=== PATIENT | male | born 1955 | race African-American/Black ===

== ENCOUNTER 2016-12-31 10:14 | Inpatient (IN) ==
[2016-12-31] MEDS ORDERED: methylPREDNISolone SOD SUC 125 MG/2 ML VIAL IV STA (10:23)
[2016-12-31] MEDS ORDERED: VECURONIUM 10 MG VIAL IV STA (10:30)
[2016-12-31] MEDS ORDERED: ALBUTEROL 2.5 MG/3 ML NEB RESP TX SCH (10:30)
[2016-12-31] MEDS ORDERED: PROPOFOL 1,000 MG/100 ML BOTTLE IV ONE (10:31)
[2016-12-31] MEDS: PROPOFOL 1,000 MG/100 ML BOTTLE IV SCH ×3 (10:34→21:01)
[2016-12-31] MEDS ORDERED: ETOMIDATE 20 MG/10 ML VIAL IV ONE ×2 (10:36→10:46)
[2016-12-31] MEDS ORDERED: VECURONIUM 10 MG VIAL IV ONE (10:46)
[2016-12-31 10:54] LABS: ABG Base Excess -3.9 MMOL/L (-2.5-2.5); ABG HCO3 21.2 MMOL/L (20-26); ABG TCO2 23.7 MMOL/L (23-27)
[2016-12-31 11:07] LABS: Basophils % 0.4 % (0.0-0.8); Eosinophils # 0.3 10*3/uL (0.0-0.87); Eosinophils % 2.8 % (0.00-10.9); Hematocrit 24.8 VOL% (42.0-52.0); Hemoglobin 7.5 GM/DL (14.0-18.0); Immature Granulocytes % 0.4 %; Immature Granulocytes Absolute 0.04 #; Lymphocytes # 1.6 10*3/uL (1.4-4.0); Lymphocytes % 15.1 % (21.2-54.2); Mean Corpuscular HGB Conc 30.2 GM/DL (32-36); Mean Corpuscular Hemoglobin 24 PG (27-34); Mean Corpuscular Volume 79.2 FL (87-102); Mean Platelet Volume 12.3 FL (9.6-12.0); Monocytes # 0.4 10*3/uL (0.11-0.8); Monocytes % 3.9 % (1.7-12.7); Neutrophils % 77.4 % (38.7-73.9); Platelet Count 192 T/CUMM (130-400); Red Blood Count 3.13 MC/CUMM (3.8-5.5); Red Cell Distribution Width 17.5 % (9.3-17.3); White Blood Count 10.3 T/CUMM (4-12)
[2016-12-31 11:16] LABS: INR 1.2; Partial Thromboplastin Time 26.4 SECS (0-40)
[2016-12-31] MEDS ORDERED: methylPREDNISolone SOD SUC 125 MG/2 ML VIAL ONE (11:36)
[2016-12-31 11:42] LABS: Alanine Aminotransferase 129 U/L (16-61); Albumin 3.2 G/DL (3.4-5.0); Alkaline Phosphatase 109 U/L (45-117); Aspartate Amino Transferase 160 U/L (0-37); Bilirubin,Total < 0.39 MG/DL (0.2-1.0); Blood Urea Nitrogen 52 MG/DL (7-18); Calcium 8.5 MG/DL (8.5-10.1); Glucose 211 MG/DL (74-106); Potassium 4.3 MMOL/L (3.5-5.1); Sodium 143 MMOL/L (136-145); Total Protein 6.2 G/DL (6.4-8.3)
[2016-12-31 11:43] LABS: Troponin I Only 0.234 NG/ML (0.00-0.045)
[2016-12-31 11:50] LABS: Apearance,Urine CLEAR (Clear); Bilirubin,Urine Negative (Negative); Blood, Urine Small mg/dL (Negative); Glucose,Urine (UA) 50 mg/dL (Negative); Ketones,Urine Negative (Negative); Mucus,Urine Occasional /LPF (Occasional); Nitrite,Urine Negative (Negative); Protein,Urine >=500 MG/DL; RBC,Urine <1 /HPF (0-4); Urine Color Straw (Yellow); Urine Specific Gravity 1.007 (1.001-1.035); Urine Urobilinogen < 2.0 EU/DL (0.2-1.0); WBC,Urine 2 /HPF (0-6)
[2016-12-31] MEDS ORDERED: ALBUTEROL 2.5 MG/3 ML NEB RESP TX PRN (12:52)
[2016-12-31] MEDS ORDERED: SODIUM CHLORIDE 0.9% 250 ML IV PRN (13:00)
[2016-12-31] MEDS ORDERED: GLUCAGON 1 MG VIAL IM PRN (14:20)
[2016-12-31] MEDS ORDERED: DEXTROSE 50% 25 GM/50 ML VIAL IV PRN (14:20)
[2016-12-31 15:36] LABS: ABG Base Excess 0.4 MMOL/L (-2.5-2.5); ABG HCO3 25.1 MMOL/L (20-26); ABG Oxygen Saturation 98.8 % (95-100); ABG PCO2 40.4 MM HG (35-48); ABG PH 7.411 (7.35-7.45); ABG PO2 155.3 MM HG (80-95); ABG TCO2 26.3 MMOL/L (23-27); Allen Test Positive; Pt O2 Delivery Device Ventilator
[2016-12-31] MEDS: FUROSEMIDE 40 MG/4 ML VIAL IV SCH (17:07)
[2016-12-31] MEDS: INSULIN REGULAR 100 UNIT/ML SUBCUT SCH ×2 (17:07→20:07)
[2016-12-31 17:10] LABS: CKMB % 1.9 %
[2016-12-31 17:11] LABS: Troponin I Only 0.252 NG/ML (0.00-0.045)
[2016-12-31] MEDS: PANTOPRAZOLE 40 MG VIAL IV SCH (20:07)
[2016-12-31 23:13] LABS: Troponin I Only 0.204 NG/ML (0.00-0.045)
[2017-01-01] MEDS: PROPOFOL 1,000 MG/100 ML BOTTLE IV SCH ×7 (00:31→21:19)
[2017-01-01 03:12] LABS: ABG Base Excess -3.4 MMOL/L (-2.5-2.5); ABG HCO3 21.5 MMOL/L (20-26); ABG Oxygen Saturation 99.9 % (95-100); ABG PCO2 32.6 MM HG (35-48); ABG PH 7.408 (7.35-7.45); ABG TCO2 19.2 MMOL/L (23-27)
[2017-01-01 03:22] LABS: Basophils % 0.2 % (0.0-0.8); Hematocrit 25.7 VOL% (42.0-52.0); Hemoglobin 8.2 GM/DL (14.0-18.0); Immature Granulocytes % 0.5 %; Immature Granulocytes Absolute 0.03 #; Lymphocytes # 0.5 10*3/uL (1.4-4.0); Lymphocytes % 8.3 % (21.2-54.2); Mean Corpuscular HGB Conc 31.9 GM/DL (32-36); Mean Corpuscular Hemoglobin 25 PG (27-34); Mean Corpuscular Volume 77.2 FL (87-102); Mean Platelet Volume 12.5 FL (9.6-12.0); Monocytes # 0.1 10*3/uL (0.11-0.8); Monocytes % 1.4 % (1.7-12.7); Neutrophils # 5.2 10*3/uL (1.4-7.4); Neutrophils % 89.6 % (38.7-73.9); Platelet Count 161 T/CUMM (130-400); Red Blood Count 3.33 MC/CUMM (3.8-5.5); Red Cell Distribution Width 17.7 % (9.3-17.3); White Blood Count 5.8 T/CUMM (4-12)
[2017-01-01 03:58] LABS: Calcium 8.4 MG/DL (8.5-10.1); Magnesium 1.9 MG/DL (1.8-2.4); Osmolality,Calculated 300.8 MOS/KG (273-304); Potassium 4.3 MMOL/L (3.5-5.1)
[2017-01-01 04:03] LABS: Albumin 2.9 G/DL (3.4-5.0); Bilirubin,Direct 0.11 MG/DL (0.0-0.20); Bilirubin,Indirect 1.1 MG/DL (0.0-1.0); Bilirubin,Total 1.2 MG/DL (0.2-1.0); Total Protein 5.8 G/DL (6.4-8.3)
[2017-01-01 05:55] LABS: Lymphocytes 9 % (20-55); Platelet Estimate Normal; Schistocytes Few; Segmented Neutrophils 90 % (50-85); Target Cells Few; Total Cells Counted 100
[2017-01-01] MEDS: INSULIN REGULAR 100 UNIT/ML SUBCUT SCH ×4 (07:37→20:17)
[2017-01-01] MEDS: FUROSEMIDE 40 MG/4 ML VIAL IV SCH ×2 (07:39→16:45)
[2017-01-01 08:35] LABS: Hepatitis A Ab IgM Quant 0.09 Index; Hepatitis A Ab IgM Result Negative (Negative); Hepatitis B Core IgM Quant 0.12 Index; Hepatitis B Core IgM Result Negative (Negative); Hepatitis B Surface Ag Quant 0.12 Index; Hepatitis B Surface Ag Result Negative (Negative); Hepatitis C Virus Ab Quant 0.09 Index; Hepatitis C Virus Ab Result Negative (Negative)
[2017-01-01] MEDS ORDERED: ENOXAPARIN 40 MG/0.4 ML SYRINGE SUBCUT SCH (09:00)
[2017-01-01] MEDS: NITROGLYCERIN 2% OINT 1 INCH/GM PACK TOP SCH ×3 (13:34→23:55)
[2017-01-01] MEDS: PANTOPRAZOLE 40 MG VIAL IV SCH (20:17)
[2017-01-02] MEDS: PROPOFOL 1,000 MG/100 ML BOTTLE IV SCH ×4 (00:41→12:49)
[2017-01-02 03:10] LABS: Allen Test Positive; Pt O2 Delivery Device Ventilator
[2017-01-02 03:11] LABS: ABG Base Excess -2.2 MMOL/L (-2.5-2.5); ABG HCO3 22.5 MMOL/L (20-26); ABG Oxygen Saturation 97.8 % (95-100); ABG PCO2 37.9 MM HG (35-48); ABG PH 7.391 (7.35-7.45); ABG PO2 113.8 MM HG (80-95); ABG TCO2 23.6 MMOL/L (23-27)
[2017-01-02] MEDS: NITROGLYCERIN 2% OINT 1 INCH/GM PACK TOP SCH ×3 (06:04→17:04)
[2017-01-02 06:27] LABS: Basophils % 0.1 % (0.0-0.8); Eosinophils % 0.5 % (0.00-10.9); Hematocrit 29.2 VOL% (42.0-52.0); Hemoglobin 9.4 GM/DL (14.0-18.0); Immature Granulocytes % 0.4 %; Immature Granulocytes Absolute 0.03 #; Lymphocytes # 0.8 10*3/uL (1.4-4.0); Lymphocytes % 10.2 % (21.2-54.2); Mean Corpuscular HGB Conc 32.2 GM/DL (32-36); Mean Corpuscular Hemoglobin 25 PG (27-34); Mean Corpuscular Volume 77.7 FL (87-102); Mean Platelet Volume 12.2 FL (9.6-12.0); Monocytes % 11.7 % (1.7-12.7); Neutrophils # 6.3 10*3/uL (1.4-7.4); Neutrophils % 77.1 % (38.7-73.9); Platelet Count 154 T/CUMM (130-400); Red Blood Count 3.76 MC/CUMM (3.8-5.5); Red Cell Distribution Width 18.1 % (9.3-17.3); White Blood Count 8.2 T/CUMM (4-12)
[2017-01-02 06:44] LABS: Calcium 8.9 MG/DL (8.5-10.1); Osmolality,Calculated 304.7 MOS/KG (273-304); Potassium 4.2 MMOL/L (3.5-5.1)
[2017-01-02] MEDS ORDERED: hydrALAZINE 20 MG/1 ML VIAL IV PRN (07:37)
[2017-01-02] MEDS ORDERED: NITROGLYCERIN SL 0.4 MG TABLET SL PRN (07:39)
[2017-01-02 08:10] LABS: ABG Base Excess -1.4 MMOL/L (-2.5-2.5); ABG HCO3 23.4 MMOL/L (20-26); ABG Oxygen Saturation 96.8 % (95-100); ABG PCO2 39.1 MM HG (35-48); ABG PH 7.394 (7.35-7.45); ABG PO2 94.6 MM HG (80-95); ABG TCO2 24.6 MMOL/L (23-27); Allen Test Positive; Pt O2 Delivery Device Ventilator
[2017-01-02] MEDS: FUROSEMIDE 40 MG/4 ML VIAL IV SCH (08:25)
[2017-01-02] MEDS: INSULIN REGULAR 100 UNIT/ML SUBCUT SCH ×4 (08:32→20:08)
[2017-01-02] MEDS: BRIMONIDINE 0.2% OPH SOLN 5 ML BOTTLE LEFT EYE SCH ×3 (12:19→20:08)
[2017-01-02] MEDS: ASPIRIN CHEW 81 MG TABLET PO SCH (12:20)
[2017-01-02] MEDS: ATROPINE 1 % OPH SOLN 5 ML BOTTLE LEFT EYE SCH (12:20)
[2017-01-02] MEDS: amLODIPine 5 MG TABLET PO SCH (12:20)
[2017-01-02] MEDS: CARVEDILOL 3.125 MG TABLET PO SCH ×2 (12:20→20:08)
[2017-01-02] MEDS: ATORVASTATIN 40 MG TABLET PO SCH (20:08)
[2017-01-02] MEDS: PANTOPRAZOLE 40 MG VIAL IV SCH (20:09)
[2017-01-03] MEDS: NITROGLYCERIN 2% OINT 1 INCH/GM PACK TOP SCH ×2 (00:28→06:04)
[2017-01-03 05:23] LABS: Basophils % 0.3 % (0.0-0.8); Eosinophils # 0.2 10*3/uL (0.0-0.87); Eosinophils % 3.6 % (0.00-10.9); Hematocrit 28.1 VOL% (42.0-52.0); Hemoglobin 9.1 GM/DL (14.0-18.0); Immature Granulocytes % 0.4 %; Immature Granulocytes Absolute 0.03 #; Lymphocytes # 1.1 10*3/uL (1.4-4.0); Lymphocytes % 16.8 % (21.2-54.2); Mean Corpuscular HGB Conc 32.4 GM/DL (32-36); Mean Corpuscular Hemoglobin 25 PG (27-34); Mean Corpuscular Volume 76.4 FL (87-102); Mean Platelet Volume 11.5 FL (9.6-12.0); Monocytes # 0.7 10*3/uL (0.11-0.8); Monocytes % 10.1 % (1.7-12.7); Neutrophils # 4.6 10*3/uL (1.4-7.4); Neutrophils % 68.8 % (38.7-73.9); Platelet Count 152 T/CUMM (130-400); Red Blood Count 3.68 MC/CUMM (3.8-5.5); Red Cell Distribution Width 17.6 % (9.3-17.3); White Blood Count 6.7 T/CUMM (4-12)
[2017-01-03 06:00] LABS: Calcium 8.1 MG/DL (8.5-10.1); Osmolality,Calculated 305.6 MOS/KG (273-304); Potassium 3.6 MMOL/L (3.5-5.1)
[2017-01-03] MEDS: INSULIN REGULAR 100 UNIT/ML SUBCUT SCH ×4 (07:55→22:57)
[2017-01-03] MEDS: ATROPINE 1 % OPH SOLN 5 ML BOTTLE LEFT EYE SCH (08:03)
[2017-01-03] MEDS: BRIMONIDINE 0.2% OPH SOLN 5 ML BOTTLE LEFT EYE SCH ×3 (08:03→21:22)
[2017-01-03] MEDS: CARVEDILOL 3.125 MG TABLET PO SCH ×2 (08:04→21:21)
[2017-01-03] MEDS: amLODIPine 5 MG TABLET PO SCH (08:04)
[2017-01-03] MEDS: ASPIRIN CHEW 81 MG TABLET PO SCH (08:04)
[2017-01-03] MEDS: FUROSEMIDE 80 MG TABLET PO SCH (08:04)
[2017-01-03] MEDS: ISOSORBIDE MONONITRATE 30 MG TABLET PO SCH (11:24)
[2017-01-03] MEDS: ATORVASTATIN 40 MG TABLET PO SCH (21:21)
[2017-01-03] MEDS: PANTOPRAZOLE 40 MG VIAL IV SCH (21:22)
[2017-01-04 07:34] LABS: Calcium 8.7 MG/DL (8.5-10.1); Osmolality,Calculated 303.8 MOS/KG (273-304); Potassium 3.3 MMOL/L (3.5-5.1)
[2017-01-04] MEDS: INSULIN REGULAR 100 UNIT/ML SUBCUT SCH (09:04)
[2017-01-04] MEDS: BRIMONIDINE 0.2% OPH SOLN 5 ML BOTTLE LEFT EYE SCH (09:05)
[2017-01-04] MEDS: amLODIPine 5 MG TABLET PO SCH (09:06)
[2017-01-04] MEDS: FUROSEMIDE 80 MG TABLET PO SCH (09:06)
[2017-01-04] MEDS: ISOSORBIDE MONONITRATE 30 MG TABLET PO SCH (09:06)
[2017-01-04] MEDS: ASPIRIN CHEW 81 MG TABLET PO SCH (09:06)
[2017-01-04] MEDS: ATROPINE 1 % OPH SOLN 5 ML BOTTLE LEFT EYE SCH (09:07)
[2017-01-04] MEDS: CARVEDILOL 3.125 MG TABLET PO SCH (09:07)
[2017-01-04 11:06] VITALS: BP 113/65
== END 2017-01-04 12:40 | disposition home or self-care (01) | DRG 208 ==
LOC: EDUNIT# → EDBD → N.ED 10:14 → N.EDINP 11:37 → SUATTDRO 11:37 → N.ICU 12:38 → N.5E 01-03 09:24
PROVIDERS: ADMIT Internal Medicine; ATTEND Internal Medicine

== ENCOUNTER 2017-02-25 06:09 | Inpatient (IN) ==
[2017-02-25] MEDS ORDERED: SODIUM CHLORIDE 0.9% 500 ML IV STA (06:10)
[2017-02-25] MEDS ORDERED: PROPOFOL 1,000 MG/100 ML BOTTLE IV ONE (06:15)
[2017-02-25] MEDS ORDERED: FUROSEMIDE 100 MG/10 ML VIAL ONE (06:17)
[2017-02-25] MEDS ORDERED: ROCURONIUM 100 MG/10 ML VIAL IV ONE ×2 (06:17→08:59)
[2017-02-25] MEDS ORDERED: ETOMIDATE 20 MG/10 ML VIAL IV ONE (06:26)
[2017-02-25 06:38] LABS: ABG Base Excess -12.2 MMOL/L (-2.5-2.5); ABG HCO3 14.7 MMOL/L (20-26); ABG Oxygen Saturation 99.9 % (95-100); ABG PCO2 57.5 MM HG (35-48); ABG TCO2 17.1 MMOL/L (23-27)
[2017-02-25] MEDS ORDERED: ENOXAPARIN 40 MG/0.4 ML SYRINGE ONE (06:43)
[2017-02-25] MEDS ORDERED: ASPIRIN 300 MG SUPP RECTAL ONE (06:43)
[2017-02-25] MEDS ORDERED: ETOMIDATE 20 MG/10 ML VIAL IV STA (06:53)
[2017-02-25] MEDS ORDERED: ROCURONIUM 100 MG/10 ML VIAL IV STA ×2 (06:54→09:00)
[2017-02-25] MEDS ORDERED: ASPIRIN 300 MG SUPP RECTAL STA (06:55)
[2017-02-25] MEDS ORDERED: ENOXAPARIN 40 MG/0.4 ML SYRINGE SUBCUT STA (06:55)
[2017-02-25] MEDS: PROPOFOL 1,000 MG/100 ML BOTTLE IV SCH ×2 (06:56→11:15)
[2017-02-25 07:02] LABS: Basophils % 0.4 % (0.0-0.8); Eosinophils # 0.3 10*3/uL (0.0-0.87); Eosinophils % 3.2 % (0.00-10.9); Hematocrit 27.4 VOL% (42.0-52.0); Hemoglobin 8.2 GM/DL (14.0-18.0); Immature Granulocytes % 0.3 %; Immature Granulocytes Absolute 0.03 #; Lymphocytes # 1.7 10*3/uL (1.4-4.0); Mean Corpuscular HGB Conc 29.9 GM/DL (32-36); Mean Corpuscular Hemoglobin 25 PG (27-34); Mean Corpuscular Volume 82.5 FL (87-102); Mean Platelet Volume 12.4 FL (9.6-12.0); Monocytes # 0.4 10*3/uL (0.11-0.8); Monocytes % 4.4 % (1.7-12.7); Neutrophils # 7.6 10*3/uL (1.4-7.4); Neutrophils % 74.7 % (38.7-73.9); Platelet Count 208 T/CUMM (130-400); Red Blood Count 3.32 MC/CUMM (3.8-5.5); White Blood Count 10.1 T/CUMM (4-12)
[2017-02-25 07:12] LABS: ABG PH 7.091 (7.35-7.45)
[2017-02-25 07:24] LABS: Apearance,Urine CLEAR (Clear); Bacteria,Urine Occasional /HPF (Few); Bilirubin,Urine Negative (Negative); Blood, Urine Negative (Negative); Glucose,Urine (UA) 50 mg/dL (Negative); Ketones,Urine Negative (Negative); Mucus,Urine Occasional /LPF (Occasional); Nitrite,Urine Negative (Negative); Protein,Urine 100 MG/DL; RBC,Urine 4 /HPF (0-4); Squamous Epithelial Cell,Urine Occasional /HPF (0-10); Urine Color Straw (Yellow); Urine Specific Gravity 1.006 (1.001-1.035); Urine Urobilinogen < 2.0 EU/DL (0.2-1.0); WBC,Urine 7 /HPF (0-6)
[2017-02-25 07:30] LABS: Barbiturates Screen,Urine Negative (Negative); Benzodiazepines Screen,Urine Negative (Negative); Cannabinoid Screen,Urine Negative (Negative); Opiate Screen,Urine Negative (Negative); Phencyclidine Screen,Urine Negative (Negative)
[2017-02-25] MEDS ORDERED: PIPERACILLIN/TAZOBACTAM 3,375 MG in SODIUM CHLORIDE 0.9% 100 ML IV STA (07:33)
[2017-02-25] MEDS ORDERED: PIPERACILLIN/TAZOBACTAM 3,375 MG VIAL IV ONE (07:36)
[2017-02-25] MEDS ORDERED: SODIUM CHLORIDE 0.9% 100 ML IV ONE (07:36)
[2017-02-25] MEDS ORDERED: SODIUM CHLORIDE 0.9% 0 ML IV ONE (07:36)
[2017-02-25 07:40] LABS: Alanine Aminotransferase 177 U/L (16-61); Alkaline Phosphatase 130 U/L (45-117); Aspartate Amino Transferase 254 U/L (0-37); Bilirubin,Total < 0.39 MG/DL (0.2-1.0); Blood Urea Nitrogen 59 MG/DL (7-18); CKMB % 1.7 %; Calcium 8.3 MG/DL (8.5-10.1); Glucose 219 MG/DL (74-106); Osmolality,Calculated 300.5 MOS/KG (273-304); Potassium 4.9 MMOL/L (3.5-5.1); Sodium 139 MMOL/L (136-145); Total Protein 6.2 G/DL (6.4-8.3)
[2017-02-25 07:41] LABS: Troponin I Only 0.102 NG/ML (0.00-0.045)
[2017-02-25] MEDS ORDERED: ONDANSETRON 4 MG/2 ML VIAL IV PRN (08:28)
[2017-02-25] MEDS ORDERED: ALBUTEROL 2.5 MG/3 ML NEB RESP TX PRN (08:28)
[2017-02-25] MEDS ORDERED: GLUCAGON 1 MG VIAL IM PRN ×2 (08:42→08:43)
[2017-02-25] MEDS ORDERED: DEXTROSE 50% 25 GM/50 ML VIAL IV PRN ×2 (08:42→08:43)
[2017-02-25] MEDS ORDERED: INSULIN REGULAR 100 UNIT/ML SUBCUT SCH (10:00)
[2017-02-25 10:05] LABS: Hepatitis A Ab IgM Quant 0.15 Index; Hepatitis A Ab IgM Result Negative (Negative); Hepatitis B Core IgM Result Negative (Negative); Hepatitis B Surface Ag Quant 0.17 Index; Hepatitis B Surface Ag Result Negative (Negative); Hepatitis C Virus Ab Quant 0.15 Index; Hepatitis C Virus Ab Result Negative (Negative)
[2017-02-25 11:38] LABS: ABG Base Excess -11.2 MMOL/L (-2.5-2.5); ABG HCO3 15.5 MMOL/L (20-26); ABG Oxygen Saturation 96.3 % (95-100); ABG PCO2 55.5 MM HG (35-48); ABG TCO2 17.5 MMOL/L (23-27)
[2017-02-25 11:41] LABS: ABG PH 7.123 (7.35-7.45)
[2017-02-25] MEDS ORDERED: SODIUM BICARBONATE 50 MEQ/50 ML SYRINGE IV ONE ×2 (11:55→12:02)
[2017-02-25] MEDS: PANTOPRAZOLE 40 MG VIAL IV SCH (12:08)
[2017-02-25] MEDS: FUROSEMIDE 40 MG/4 ML VIAL IV SCH (17:43)
[2017-02-25] MEDS: INSULIN REGULAR 100 UNIT/ML SUBCUT SCH ×2 (17:44→22:19)
[2017-02-25] MEDS: CARVEDILOL 6.25 MG TABLET PO SCH (22:19)
[2017-02-25] MEDS: amLODIPine 5 MG TABLET PO SCH (22:19)
[2017-02-25] MEDS: PIPERACILLIN/TAZOBACTAM 3,375 MG in SODIUM CHLORIDE 0.9% 100 ML IV SCH (22:20)
[2017-02-25 23:06] LABS: CKMB % 2.6 %
[2017-02-25 23:29] LABS: Troponin I Only 2.92 NG/ML (0.00-0.045)
[2017-02-26] MEDS: INSULIN REGULAR 100 UNIT/ML SUBCUT SCH ×7 (00:11→20:12)
[2017-02-26] MEDS: PROPOFOL 1,000 MG/100 ML BOTTLE IV SCH ×6 (00:12→20:18)
[2017-02-26 04:20] LABS: ABG HCO3 15.8 MMOL/L (20-26); ABG PCO2 38.6 MM HG (35-48); ABG PH 7.227 (7.35-7.45); ABG TCO2 14.9 MMOL/L (23-27); Allen Test Positive; Pt O2 Delivery Device Ventilator
[2017-02-26 05:12] LABS: Hematocrit 28.9 VOL% (42.0-52.0); Immature Granulocytes % 1.1 %; Lymphocytes # 0.7 10*3/uL (1.4-4.0); Lymphocytes % 7.6 % (21.2-54.2); Mean Corpuscular HGB Conc 31.1 GM/DL (32-36); Mean Corpuscular Hemoglobin 25 PG (27-34); Mean Corpuscular Volume 80.7 FL (87-102); Mean Platelet Volume 11.8 FL (9.6-12.0); Monocytes # 0.4 10*3/uL (0.11-0.8); Monocytes % 4.8 % (1.7-12.7); NRBC # 0.02 10*3/uL; Neutrophils # 7.7 10*3/uL (1.4-7.4); Neutrophils % 86.5 % (38.7-73.9); Platelet Count 201 T/CUMM (130-400); Red Blood Count 3.58 MC/CUMM (3.8-5.5); Red Cell Distribution Width 19.2 % (9.3-17.3); White Blood Count 8.9 T/CUMM (4-12)
[2017-02-26 05:51] LABS: Calcium 8.9 MG/DL (8.5-10.1); Osmolality,Calculated 300.3 MOS/KG (273-304); Potassium 5.7 MMOL/L (3.5-5.1)
[2017-02-26 06:10] LABS: Albumin 3.1 G/DL (3.4-5.0); Bilirubin,Direct 0.12 MG/DL (0.0-0.20); Bilirubin,Indirect 0.4 MG/DL (0.0-1.0); Bilirubin,Total 0.5 MG/DL (0.2-1.0); Total Protein 6.5 G/DL (6.4-8.3)
[2017-02-26] MEDS ORDERED: SODIUM BICARBONATE 50 MEQ/50 ML SYRINGE IV ONE ×2 (06:16→06:33)
[2017-02-26] MEDS: FUROSEMIDE 100 MG/10 ML VIAL IV SCH ×2 (10:05→17:03)
[2017-02-26] MEDS ORDERED: ceFAZolin 2,000 MG in PREMIX 1 EACH IV ONE (10:10)
[2017-02-26] MEDS: amLODIPine 5 MG TABLET PO SCH ×2 (10:17→21:33)
[2017-02-26] MEDS: CARVEDILOL 6.25 MG TABLET PO SCH ×2 (10:17→18:27)
[2017-02-26] MEDS: PANTOPRAZOLE 40 MG VIAL IV SCH (10:17)
[2017-02-26] MEDS: PIPERACILLIN/TAZOBACTAM 3,375 MG in SODIUM CHLORIDE 0.9% 100 ML IV SCH ×2 (10:18→21:33)
[2017-02-26 10:53] LABS: Hepatitis A Ab IgM Quant 0.15 Index; Hepatitis A Ab IgM Result Negative (Negative); Hepatitis B Core IgM Quant 0.09 Index; Hepatitis B Core IgM Result Negative (Negative); Hepatitis B Surface Ag Quant 0.34 Index; Hepatitis B Surface Ag Result Negative (Negative); Hepatitis C Virus Ab Quant 0.16 Index; Hepatitis C Virus Ab Result Negative (Negative)
[2017-02-26] MEDS ORDERED: HEPARIN 5,000 UNIT/1 ML VIAL ONE (11:57)
[2017-02-26] MEDS ORDERED: ceFAZolin 1,000 MG VIAL ONE (12:42)
[2017-02-26] MEDS ORDERED: ROCURONIUM 100 MG/10 ML VIAL IV ONE (13:18)
[2017-02-26] MEDS ORDERED: fentaNYL 100 MCG/2 ML VIAL ONE (13:18)
[2017-02-26] MEDS ORDERED: SEVOFLURANE 1 UNIT/15 MINUTE INH ONE (13:18)
[2017-02-26] MEDS ORDERED: MIDAZOLAM 2 MG/2 ML VIAL ONE (13:18)
[2017-02-26] MEDS: SODIUM CHLORIDE 23.4% CONC INJ 38.5 MEQ, SODIUM BICARB INJ 100 MEQ in STERILE WATER INJ... IV SCH (14:00)
[2017-02-26 14:22] LABS: Calcium 8.1 MG/DL (8.5-10.1); Potassium 4.6 MMOL/L (3.5-5.1)
[2017-02-26] MEDS ORDERED: HEPARIN 10,000 UNIT/10 ML VIAL IV PRN (15:35)
[2017-02-27] MEDS: SODIUM CHLORIDE 23.4% CONC INJ 38.5 MEQ, SODIUM BICARB INJ 100 MEQ in STERILE WATER INJ... IV SCH ×2 (00:09→08:35)
[2017-02-27] MEDS: PROPOFOL 1,000 MG/100 ML BOTTLE IV SCH ×7 (00:10→23:50)
[2017-02-27] MEDS: FUROSEMIDE 100 MG/10 ML VIAL IV SCH ×2 (02:30→08:43)
[2017-02-27] MEDS: INSULIN REGULAR 100 UNIT/ML SUBCUT SCH ×7 (04:00→23:43)
[2017-02-27 06:09] LABS: Basophils % 0.3 % (0.0-0.8); Eosinophils # 0.1 10*3/uL (0.0-0.87); Eosinophils % 1.4 % (0.00-10.9); Hematocrit 24.9 VOL% (42.0-52.0); Hemoglobin 7.9 GM/DL (14.0-18.0); Immature Granulocytes % 0.5 %; Immature Granulocytes Absolute 0.04 #; Lymphocytes % 13.4 % (21.2-54.2); Mean Corpuscular HGB Conc 31.7 GM/DL (32-36); Mean Corpuscular Hemoglobin 25 PG (27-34); Mean Corpuscular Volume 77.8 FL (87-102); Mean Platelet Volume 12.8 FL (9.6-12.0); Monocytes # 0.8 10*3/uL (0.11-0.8); Monocytes % 10.8 % (1.7-12.7); Neutrophils # 5.4 10*3/uL (1.4-7.4); Neutrophils % 73.6 % (38.7-73.9); Platelet Count 181 T/CUMM (130-400); Red Cell Distribution Width 19.1 % (9.3-17.3); White Blood Count 7.3 T/CUMM (4-12)
[2017-02-27 06:39] LABS: Calcium 7.8 MG/DL (8.5-10.1); Osmolality,Calculated 297.1 MOS/KG (273-304); Potassium 3.9 MMOL/L (3.5-5.1)
[2017-02-27 06:40] LABS: Calcium 7.7 MG/DL (8.5-10.1); Magnesium 1.9 MG/DL (1.8-2.4); Osmolality,Calculated 297.1 MOS/KG (273-304); Potassium 3.9 MMOL/L (3.5-5.1)
[2017-02-27] MEDS: FUROSEMIDE 40 MG/4 ML VIAL IV SCH (07:26)
[2017-02-27] MEDS: PANTOPRAZOLE 40 MG VIAL IV SCH (08:43)
[2017-02-27] MEDS: amLODIPine 5 MG TABLET PO SCH ×2 (08:43→20:26)
[2017-02-27] MEDS: CARVEDILOL 6.25 MG TABLET PO SCH ×2 (08:43→16:09)
[2017-02-27] MEDS ORDERED: INFLUENZA VIRUS VACCINE 0.5 ML SYRINGE IM ONE (09:00)
[2017-02-27] MEDS: PIPERACILLIN/TAZOBACTAM 3,375 MG in SODIUM CHLORIDE 0.9% 100 ML IV SCH (10:17)
[2017-02-27] MEDS: LINEZOLID INJ 600 MG in PREMIX 1 EACH IV SCH ×2 (10:45→21:51)
[2017-02-27] MEDS: PIPERACILLIN/TAZOBACTAM 2,250 MG in SODIUM CHLORIDE 0.9% 100 ML IV SCH ×2 (12:59→23:01)
[2017-02-27] MEDS: NOREPINEPHRINE 8 MG in SODIUM CHLORIDE 0.9% 242 ML IV SCH (16:30)
[2017-02-28 03:11] LABS: ABG Base Excess 3.6 MMOL/L (-2.5-2.5); ABG HCO3 27.7 MMOL/L (20-26); ABG Oxygen Saturation 99.4 % (95-100); ABG PCO2 44.1 MM HG (35-48); ABG PH 7.419 (7.35-7.45); ABG TCO2 26.4 MMOL/L (23-27)
[2017-02-28] MEDS: PROPOFOL 1,000 MG/100 ML BOTTLE IV SCH ×5 (03:58→23:04)
[2017-02-28] MEDS: INSULIN REGULAR 100 UNIT/ML SUBCUT SCH ×6 (05:10→23:43)
[2017-02-28 05:23] LABS: Basophils % 0.5 % (0.0-0.8); Eosinophils # 0.3 10*3/uL (0.0-0.87); Eosinophils % 3.7 % (0.00-10.9); Hematocrit 26.5 VOL% (42.0-52.0); Hemoglobin 8.6 GM/DL (14.0-18.0); Immature Granulocytes % 0.6 %; Immature Granulocytes Absolute 0.05 #; Lymphocytes # 1.3 10*3/uL (1.4-4.0); Lymphocytes % 15.5 % (21.2-54.2); Mean Corpuscular HGB Conc 32.5 GM/DL (32-36); Mean Corpuscular Hemoglobin 25 PG (27-34); Mean Corpuscular Volume 76.6 FL (87-102); Monocytes # 1.2 10*3/uL (0.11-0.8); NRBC # 0.02 10*3/uL; Neutrophils # 5.2 10*3/uL (1.4-7.4); Neutrophils % 64.7 % (38.7-73.9); Platelet Count 135 T/CUMM (130-400); Red Blood Count 3.46 MC/CUMM (3.8-5.5); Red Cell Distribution Width 18.8 % (9.3-17.3); White Blood Count 8.1 T/CUMM (4-12)
[2017-02-28 06:02] LABS: Calcium 8.3 MG/DL (8.5-10.1); Magnesium 2.1 MG/DL (1.8-2.4); Osmolality,Calculated 288.5 MOS/KG (273-304); Potassium 3.7 MMOL/L (3.5-5.1); Prealbumin 31.1 MG/DL (20-40)
[2017-02-28 06:57] LABS: Anisocytosis Slight; Microcytosis 1+; Ovalocytes Few; Platelet Estimate Normal
[2017-02-28] MEDS: CARVEDILOL 6.25 MG TABLET PO SCH ×2 (08:28→17:36)
[2017-02-28] MEDS: amLODIPine 5 MG TABLET PO SCH ×2 (08:29→20:45)
[2017-02-28] MEDS: PANTOPRAZOLE 40 MG VIAL IV SCH (08:30)
[2017-02-28] MEDS: LINEZOLID INJ 600 MG in PREMIX 1 EACH IV SCH ×2 (10:30→23:03)
[2017-02-28] MEDS: PIPERACILLIN/TAZOBACTAM 2,250 MG in SODIUM CHLORIDE 0.9% 100 ML IV SCH ×2 (11:23→23:43)
[2017-02-28] MEDS: NOREPINEPHRINE 8 MG in SODIUM CHLORIDE 0.9% 242 ML IV SCH (17:36)
[2017-03-01] MEDS: PROPOFOL 1,000 MG/100 ML BOTTLE IV SCH ×5 (02:10→15:52)
[2017-03-01 03:37] LABS: ABG Base Excess 3.6 MMOL/L (-2.5-2.5); ABG HCO3 27.6 MMOL/L (20-26); ABG Oxygen Saturation 99.6 % (95-100); ABG PCO2 38.6 MM HG (35-48); ABG PH 7.462 (7.35-7.45); ABG TCO2 25.7 MMOL/L (23-27); Pt O2 Delivery Device Ventilator
[2017-03-01] MEDS: INSULIN REGULAR 100 UNIT/ML SUBCUT SCH ×6 (04:25→23:57)
[2017-03-01] MEDS: PANTOPRAZOLE 40 MG VIAL IV SCH (08:28)
[2017-03-01] MEDS: LINEZOLID INJ 600 MG in PREMIX 1 EACH IV SCH ×2 (10:26→23:57)
[2017-03-01] MEDS: amLODIPine 5 MG TABLET PO SCH ×2 (11:41→21:25)
[2017-03-01] MEDS: PIPERACILLIN/TAZOBACTAM 2,250 MG in SODIUM CHLORIDE 0.9% 100 ML IV SCH ×2 (11:41→23:57)
[2017-03-01] MEDS: CARVEDILOL 6.25 MG TABLET PO SCH ×3 (11:41→15:59)
[2017-03-01] MEDS: NOREPINEPHRINE 8 MG in SODIUM CHLORIDE 0.9% 242 ML IV SCH (15:58)
[2017-03-02] MEDS: PROPOFOL 1,000 MG/100 ML BOTTLE IV SCH ×3 (02:13→07:59)
[2017-03-02 03:44] LABS: ABG Base Excess 0.1 MMOL/L (-2.5-2.5); ABG HCO3 24.7 MMOL/L (20-26); ABG Oxygen Saturation 98.2 % (95-100); ABG PCO2 40.3 MM HG (35-48); ABG PH 7.406 (7.35-7.45); ABG PO2 112.8 MM HG (80-95); Allen Test Positive; Pt O2 Delivery Device Ventilator
[2017-03-02] MEDS: INSULIN REGULAR 100 UNIT/ML SUBCUT SCH ×5 (04:36→21:09)
[2017-03-02 04:47] LABS: Basophils % 0.3 % (0.0-0.8); Eosinophils # 0.3 10*3/uL (0.0-0.87); Hematocrit 25.1 VOL% (42.0-52.0); Hemoglobin 8.1 GM/DL (14.0-18.0); Immature Granulocytes % 0.5 %; Immature Granulocytes Absolute 0.03 #; Lymphocytes % 15.6 % (21.2-54.2); Mean Corpuscular HGB Conc 32.3 GM/DL (32-36); Mean Corpuscular Hemoglobin 25 PG (27-34); Mean Corpuscular Volume 77.2 FL (87-102); Monocytes # 0.9 10*3/uL (0.11-0.8); Monocytes % 13.3 % (1.7-12.7); NRBC # 0.02 10*3/uL; Neutrophils # 4.3 10*3/uL (1.4-7.4); Neutrophils % 65.3 % (38.7-73.9); Platelet Count 65 T/CUMM (130-400); Red Blood Count 3.25 MC/CUMM (3.8-5.5); Red Cell Distribution Width 18.6 % (9.3-17.3); White Blood Count 6.5 T/CUMM (4-12)
[2017-03-02 05:15] LABS: Alanine Aminotransferase 23 U/L (16-61); Albumin 2.5 G/DL (3.4-5.0); Alkaline Phosphatase 73 U/L (45-117); Aspartate Amino Transferase 28 U/L (0-37); Bilirubin,Total < 0.39 MG/DL (0.2-1.0); Blood Urea Nitrogen 43 MG/DL (7-18); Calcium 8.4 MG/DL (8.5-10.1); Glucose 138 MG/DL (74-106); Magnesium 2.4 MG/DL (1.8-2.4); Osmolality,Calculated 291.4 MOS/KG (273-304); Sodium 140 MMOL/L (136-145); Total Protein 5.9 G/DL (6.4-8.3)
[2017-03-02 05:26] LABS: Hypochromasia 2+; Microcytosis 1+; Ovalocytes Few; Target Cells Slight; Tear Drop Cells Slight
[2017-03-02 05:27] LABS: Platelet Estimate Decreased
[2017-03-02] MEDS: CARVEDILOL 6.25 MG TABLET PO SCH ×2 (09:11→16:58)
[2017-03-02] MEDS: amLODIPine 5 MG TABLET PO SCH ×2 (09:11→21:09)
[2017-03-02] MEDS: PANTOPRAZOLE 40 MG VIAL IV SCH (09:12)
[2017-03-02] MEDS: ASPIRIN EC 81 MG TABLET PO SCH (09:12)
[2017-03-02] MEDS: LINEZOLID INJ 600 MG in PREMIX 1 EACH IV SCH ×2 (10:34→22:26)
[2017-03-02] MEDS: PIPERACILLIN/TAZOBACTAM 2,250 MG in SODIUM CHLORIDE 0.9% 100 ML IV SCH ×2 (12:02→22:30)
[2017-03-02] MEDS: NOREPINEPHRINE 8 MG in SODIUM CHLORIDE 0.9% 242 ML IV SCH (16:58)
[2017-03-02] MEDS: ATORVASTATIN 10 MG TABLET PO SCH (21:09)
[2017-03-03] MEDS: INSULIN REGULAR 100 UNIT/ML SUBCUT SCH ×6 (00:56→21:15)
[2017-03-03 05:05] LABS: White Blood Count 6.9 T/CUMM (4-12)
[2017-03-03 05:06] LABS: Basophils % 0.4 % (0.0-0.8); Eosinophils # 0.4 10*3/uL (0.0-0.87); Eosinophils % 6.4 % (0.00-10.9); Hematocrit 28.6 VOL% (42.0-52.0); Immature Granulocytes % 0.4 %; Immature Granulocytes Absolute 0.03 #; Lymphocytes % 15.1 % (21.2-54.2); Mean Corpuscular HGB Conc 31.5 GM/DL (32-36); Mean Corpuscular Hemoglobin 25 PG (27-34); Mean Corpuscular Volume 78.4 FL (87-102); Monocytes # 0.9 10*3/uL (0.11-0.8); Monocytes % 12.6 % (1.7-12.7); Neutrophils # 4.5 10*3/uL (1.4-7.4); Neutrophils % 65.1 % (38.7-73.9); Platelet Count 117 T/CUMM (130-400); Red Blood Count 3.65 MC/CUMM (3.8-5.5); Red Cell Distribution Width 18.6 % (9.3-17.3)
[2017-03-03 05:35] LABS: Hypochromasia 1+; Microcytosis 1+; Ovalocytes Few; Target Cells Slight
[2017-03-03 05:36] LABS: Platelet Estimate Adequate; Polychromasia Slight; Spherocytes Slight
[2017-03-03 05:42] LABS: Albumin 2.8 G/DL (3.4-5.0); Bilirubin,Total 0.5 MG/DL (0.2-1.0); Calcium 8.8 MG/DL (8.5-10.1); Magnesium 2.4 MG/DL (1.8-2.4); Osmolality,Calculated 291.5 MOS/KG (273-304); Potassium 3.1 MMOL/L (3.5-5.1); Prealbumin 35.6 MG/DL (20-40); Total Protein 6.4 G/DL (6.4-8.3)
[2017-03-03] MEDS: CARVEDILOL 6.25 MG TABLET PO SCH ×2 (08:12→19:04)
[2017-03-03] MEDS: amLODIPine 5 MG TABLET PO SCH (08:12)
[2017-03-03] MEDS: ASPIRIN EC 81 MG TABLET PO SCH (08:12)
[2017-03-03] MEDS: PANTOPRAZOLE 40 MG VIAL IV SCH (08:13)
[2017-03-03] MEDS ORDERED: methylPREDNISolone 4 MG TABLET PO SCH (08:30)
[2017-03-03] MEDS: LINEZOLID INJ 600 MG in PREMIX 1 EACH IV SCH ×2 (10:11→23:22)
[2017-03-03] MEDS: PIPERACILLIN/TAZOBACTAM 2,250 MG in SODIUM CHLORIDE 0.9% 100 ML IV SCH (11:15)
[2017-03-03] MEDS: ISOSORBIDE MONONITRATE 30 MG TABLET PO SCH (12:00)
[2017-03-03] MEDS: methylPREDNISolone 4 MG TABLET PO SCH ×2 (12:00→21:12)
[2017-03-03] MEDS: hydrALAZINE 10 MG TABLET PO SCH ×2 (16:33→21:14)
[2017-03-03] MEDS: ATORVASTATIN 10 MG TABLET PO SCH (21:13)
[2017-03-04] MEDS: INSULIN REGULAR 100 UNIT/ML SUBCUT SCH ×6 (01:04→21:10)
[2017-03-04] MEDS: PIPERACILLIN/TAZOBACTAM 2,250 MG in SODIUM CHLORIDE 0.9% 100 ML IV SCH (02:25)
[2017-03-04 06:31] LABS: Basophils % 0.3 % (0.0-0.8); Eosinophils % 0.4 % (0.00-10.9); Hemoglobin 8.3 GM/DL (14.0-18.0); Immature Granulocytes % 0.3 %; Immature Granulocytes Absolute 0.02 #; Lymphocytes % 13.9 % (21.2-54.2); Mean Corpuscular HGB Conc 31.9 GM/DL (32-36); Mean Corpuscular Hemoglobin 24 PG (27-34); Mean Corpuscular Volume 76.5 FL (87-102); Monocytes # 0.6 10*3/uL (0.11-0.8); Monocytes % 8.1 % (1.7-12.7); Neutrophils # 5.3 10*3/uL (1.4-7.4); Platelet Count 79 T/CUMM (130-400); Red Cell Distribution Width 18.2 % (9.3-17.3); White Blood Count 6.8 T/CUMM (4-12)
[2017-03-04 06:52] LABS: Giant Platelets Few; Hypochromasia 1+; Platelet Estimate Decreased
[2017-03-04 06:53] LABS: Burr Cells Slight; Microcytosis Slight; Ovalocytes Slight
[2017-03-04] MEDS ORDERED: HEPARIN 10,000 UNIT/10 ML VIAL IV SCH (07:00)
[2017-03-04 07:01] LABS: Calcium 8.9 MG/DL (8.5-10.1); Magnesium 2.2 MG/DL (1.8-2.4); Osmolality,Calculated 286.7 MOS/KG (273-304); Potassium 2.9 MMOL/L (3.5-5.1)
[2017-03-04] MEDS: methylPREDNISolone 4 MG TABLET PO SCH ×3 (08:56→21:11)
[2017-03-04] MEDS: CARVEDILOL 6.25 MG TABLET PO SCH ×2 (08:56→17:17)
[2017-03-04] MEDS: ISOSORBIDE MONONITRATE 30 MG TABLET PO SCH (08:57)
[2017-03-04] MEDS: hydrALAZINE 10 MG TABLET PO SCH ×3 (08:57→21:11)
[2017-03-04] MEDS: ASPIRIN EC 81 MG TABLET PO SCH (08:57)
[2017-03-04] MEDS: PANTOPRAZOLE 40 MG TABLET PO SCH (08:57)
[2017-03-04] MEDS ORDERED: POTASSIUM CHLORIDE 20 MEQ PACK PO ONE (09:03)
[2017-03-04] MEDS ORDERED: EPOETIN ALFA 10,000 UNIT/1 ML VIAL IV PRN (09:16)
[2017-03-04] MEDS: LINEZOLID INJ 600 MG in PREMIX 1 EACH IV SCH ×2 (09:40→23:45)
[2017-03-04] MEDS: PIPERACILLIN/TAZOBACTAM 3,375 MG in SODIUM CHLORIDE 0.9% 100 ML IV SCH ×2 (09:54→19:45)
[2017-03-04] MEDS: ATORVASTATIN 10 MG TABLET PO SCH (21:11)
[2017-03-05] MEDS: INSULIN REGULAR 100 UNIT/ML SUBCUT SCH ×6 (05:04→21:29)
[2017-03-05 05:48] LABS: Basophils % 0.5 % (0.0-0.8); Eosinophils # 0.1 10*3/uL (0.0-0.87); Eosinophils % 1.1 % (0.00-10.9); Hematocrit 23.3 VOL% (42.0-52.0); Hemoglobin 7.6 GM/DL (14.0-18.0); Immature Granulocytes % 1.6 %; Lymphocytes # 0.9 10*3/uL (1.4-4.0); Mean Corpuscular HGB Conc 32.6 GM/DL (32-36); Mean Corpuscular Hemoglobin 25 PG (27-34); Mean Corpuscular Volume 76.6 FL (87-102); Monocytes # 0.4 10*3/uL (0.11-0.8); Monocytes % 6.1 % (1.7-12.7); Neutrophils # 4.8 10*3/uL (1.4-7.4); Neutrophils % 75.7 % (38.7-73.9); Red Blood Count 3.04 MC/CUMM (3.8-5.5); Red Cell Distribution Width 18.3 % (9.3-17.3); White Blood Count 6.3 T/CUMM (4-12)
[2017-03-05 05:55] LABS: Platelet Count 91 T/CUMM (130-400)
[2017-03-05 06:21] LABS: Albumin 2.8 G/DL (3.4-5.0); Bilirubin,Total 0.5 MG/DL (0.2-1.0); Calcium 8.5 MG/DL (8.5-10.1); Osmolality,Calculated 291.1 MOS/KG (273-304); Potassium 3.3 MMOL/L (3.5-5.1); Total Protein 6.5 G/DL (6.4-8.3)
[2017-03-05 06:47] LABS: Hypochromasia 1+
[2017-03-05 06:48] LABS: Microcytosis 1+; Ovalocytes Few; Platelet Estimate Decreased
[2017-03-05 06:56] LABS: Calcium 8.6 MG/DL (8.5-10.1); Magnesium 2.2 MG/DL (1.8-2.4); Osmolality,Calculated 292.1 MOS/KG (273-304); Potassium 3.3 MMOL/L (3.5-5.1)
[2017-03-05] MEDS: methylPREDNISolone 4 MG TABLET PO SCH ×3 (08:57→21:28)
[2017-03-05] MEDS: ASPIRIN EC 81 MG TABLET PO SCH (08:59)
[2017-03-05] MEDS: CARVEDILOL 6.25 MG TABLET PO SCH ×2 (08:59→17:05)
[2017-03-05] MEDS: PANTOPRAZOLE 40 MG TABLET PO SCH (08:59)
[2017-03-05] MEDS: ISOSORBIDE MONONITRATE 30 MG TABLET PO SCH (08:59)
[2017-03-05] MEDS: hydrALAZINE 10 MG TABLET PO SCH ×3 (08:59→21:28)
[2017-03-05] MEDS: PIPERACILLIN/TAZOBACTAM 3,375 MG in SODIUM CHLORIDE 0.9% 100 ML IV SCH ×2 (09:15→21:28)
[2017-03-05] MEDS: LINEZOLID INJ 600 MG in PREMIX 1 EACH IV SCH (10:10)
[2017-03-05] MEDS: ATORVASTATIN 10 MG TABLET PO SCH (21:28)
[2017-03-06] MEDS: LINEZOLID INJ 600 MG in PREMIX 1 EACH IV SCH ×3 (01:37→22:00)
[2017-03-06] MEDS: INSULIN REGULAR 100 UNIT/ML SUBCUT SCH ×6 (02:00→20:00)
[2017-03-06 05:48] LABS: Basophils % 0.6 % (0.0-0.8); Eosinophils # 0.2 10*3/uL (0.0-0.87); Eosinophils % 2.4 % (0.00-10.9); Hematocrit 21.9 VOL% (42.0-52.0); Hemoglobin 7.1 GM/DL (14.0-18.0); Immature Granulocytes % 0.7 %; Immature Granulocytes Absolute 0.05 #; Lymphocytes # 1.4 10*3/uL (1.4-4.0); Lymphocytes % 18.9 % (21.2-54.2); Mean Corpuscular HGB Conc 32.4 GM/DL (32-36); Mean Corpuscular Hemoglobin 25 PG (27-34); Mean Corpuscular Volume 77.1 FL (87-102); Monocytes # 0.7 10*3/uL (0.11-0.8); Monocytes % 9.6 % (1.7-12.7); Neutrophils # 4.9 10*3/uL (1.4-7.4); Neutrophils % 67.8 % (38.7-73.9); Platelet Count 86 T/CUMM (130-400); Red Blood Count 2.84 MC/CUMM (3.8-5.5); Red Cell Distribution Width 18.2 % (9.3-17.3); White Blood Count 7.2 T/CUMM (4-12)
[2017-03-06 06:27] LABS: Alanine Aminotransferase 38 U/L (16-61); Albumin 2.6 G/DL (3.4-5.0); Alkaline Phosphatase 58 U/L (45-117); Aspartate Amino Transferase 38 U/L (0-37); Bilirubin,Total < 0.39 MG/DL (0.2-1.0); Blood Urea Nitrogen 34 MG/DL (7-18); Calcium 8.3 MG/DL (8.5-10.1); Glucose 152 MG/DL (74-106); Potassium 3.3 MMOL/L (3.5-5.1); Sodium 136 MMOL/L (136-145); Total Protein 6.1 G/DL (6.4-8.3)
[2017-03-06 06:36] LABS: Anisocytosis 2+; Poikilocytosis 3+
[2017-03-06 06:37] LABS: Acanthocytes 2+; Hypochromasia 2+; Polychromasia 1+
[2017-03-06] MEDS ORDERED: SODIUM CHLORIDE 0.9% 1,000 ML IV PRN (07:57)
[2017-03-06] MEDS ORDERED: FUROSEMIDE 20 MG/2 ML VIAL IV ONE (07:59)
[2017-03-06] MEDS: hydrALAZINE 10 MG TABLET PO SCH ×3 (08:22→21:58)
[2017-03-06] MEDS: methylPREDNISolone 4 MG TABLET PO SCH ×3 (08:22→21:58)
[2017-03-06] MEDS: ISOSORBIDE MONONITRATE 30 MG TABLET PO SCH (08:22)
[2017-03-06] MEDS: CARVEDILOL 6.25 MG TABLET PO SCH ×2 (08:23→16:55)
[2017-03-06] MEDS: ASPIRIN EC 81 MG TABLET PO SCH (08:23)
[2017-03-06] MEDS: PANTOPRAZOLE 40 MG TABLET PO SCH (08:23)
[2017-03-06] MEDS: PIPERACILLIN/TAZOBACTAM 3,375 MG in SODIUM CHLORIDE 0.9% 100 ML IV SCH ×2 (08:25→21:30)
[2017-03-06] MEDS: ATORVASTATIN 10 MG TABLET PO SCH (21:58)
[2017-03-07] MEDS: INSULIN REGULAR 100 UNIT/ML SUBCUT SCH ×6 (00:46→21:25)
[2017-03-07 02:30] LABS: Basophils % 0.5 % (0.0-0.8); Eosinophils # 0.2 10*3/uL (0.0-0.87); Eosinophils % 2.4 % (0.00-10.9); Hematocrit 26.8 VOL% (42.0-52.0); Hemoglobin 8.9 GM/DL (14.0-18.0); Immature Granulocytes % 0.7 %; Immature Granulocytes Absolute 0.05 #; Lymphocytes # 0.9 10*3/uL (1.4-4.0); Lymphocytes % 12.5 % (21.2-54.2); Mean Corpuscular HGB Conc 33.2 GM/DL (32-36); Mean Corpuscular Hemoglobin 26 PG (27-34); Mean Corpuscular Volume 78.8 FL (87-102); Monocytes # 0.5 10*3/uL (0.11-0.8); Monocytes % 6.7 % (1.7-12.7); Neutrophils # 5.8 10*3/uL (1.4-7.4); Neutrophils % 77.2 % (38.7-73.9); White Blood Count 7.5 T/CUMM (4-12)
[2017-03-07 02:33] LABS: Platelet Count 97 T/CUMM (130-400)
[2017-03-07 03:08] LABS: Albumin 2.7 G/DL (3.4-5.0); Bilirubin,Total 0.9 MG/DL (0.2-1.0); Calcium 8.3 MG/DL (8.5-10.1); Magnesium 1.7 MG/DL (1.8-2.4); Osmolality,Calculated 289.7 MOS/KG (273-304); Potassium 3.5 MMOL/L (3.5-5.1)
[2017-03-07 04:33] LABS: Elliptocytes 2+; Hypochromasia 1+; Platelet Estimate Decreased
[2017-03-07 04:34] LABS: Anisocytosis 1+; Burr Cells Few; Microcytosis 1+
[2017-03-07] MEDS: hydrALAZINE 10 MG TABLET PO SCH ×3 (09:44→21:23)
[2017-03-07] MEDS: PANTOPRAZOLE 40 MG TABLET PO SCH (09:44)
[2017-03-07] MEDS: ISOSORBIDE MONONITRATE 30 MG TABLET PO SCH (09:44)
[2017-03-07] MEDS: ASPIRIN EC 81 MG TABLET PO SCH (09:44)
[2017-03-07] MEDS: methylPREDNISolone 4 MG TABLET PO SCH ×2 (09:44→21:23)
[2017-03-07] MEDS: CARVEDILOL 6.25 MG TABLET PO SCH ×2 (09:44→16:59)
[2017-03-07] MEDS: PIPERACILLIN/TAZOBACTAM 3,375 MG in SODIUM CHLORIDE 0.9% 100 ML IV SCH ×2 (09:46→21:23)
[2017-03-07] MEDS: LINEZOLID INJ 600 MG in PREMIX 1 EACH IV SCH ×2 (09:46→22:29)
[2017-03-07] MEDS: ALBUTEROL/IPRATROPIUM 3 ML NEB RESP TX SCH ×3 (16:13→23:55)
[2017-03-07] MEDS: ATORVASTATIN 10 MG TABLET PO SCH (21:24)
[2017-03-08] MEDS: INSULIN REGULAR 100 UNIT/ML SUBCUT SCH ×5 (01:19→16:35)
[2017-03-08] MEDS: ALBUTEROL/IPRATROPIUM 3 ML NEB RESP TX SCH ×4 (04:10→15:37)
[2017-03-08 06:26] LABS: Basophils % 0.2 % (0.0-0.8); Eosinophils % 0.2 % (0.00-10.9); Hematocrit 25.1 VOL% (42.0-52.0); Hemoglobin 8.4 GM/DL (14.0-18.0); Immature Granulocytes % 0.9 %; Immature Granulocytes Absolute 0.08 #; Lymphocytes # 1.1 10*3/uL (1.4-4.0); Lymphocytes % 12.3 % (21.2-54.2); Mean Corpuscular HGB Conc 33.5 GM/DL (32-36); Mean Corpuscular Hemoglobin 27 PG (27-34); Mean Corpuscular Volume 79.4 FL (87-102); Mean Platelet Volume 12.9 FL (9.6-12.0); Monocytes # 0.8 10*3/uL (0.11-0.8); Neutrophils # 6.6 10*3/uL (1.4-7.4); Neutrophils % 77.4 % (38.7-73.9); Platelet Count 133 T/CUMM (130-400); Red Blood Count 3.16 MC/CUMM (3.8-5.5); Red Cell Distribution Width 18.4 % (9.3-17.3); White Blood Count 8.6 T/CUMM (4-12)
[2017-03-08 07:00] LABS: % Iron Saturation 22.9 % (18-50); Albumin 2.6 G/DL (3.4-5.0); Calcium 8.3 MG/DL (8.5-10.1); Magnesium 1.6 MG/DL (1.8-2.4); Osmolality,Calculated 291.7 MOS/KG (273-304); Potassium 3.5 MMOL/L (3.5-5.1)
[2017-03-08] MEDS: ISOSORBIDE MONONITRATE 30 MG TABLET PO SCH (09:11)
[2017-03-08] MEDS: PANTOPRAZOLE 40 MG TABLET PO SCH (09:11)
[2017-03-08] MEDS: hydrALAZINE 10 MG TABLET PO SCH ×2 (09:11→15:57)
[2017-03-08] MEDS: CARVEDILOL 6.25 MG TABLET PO SCH (09:11)
[2017-03-08] MEDS: ASPIRIN EC 81 MG TABLET PO SCH (09:11)
[2017-03-08] MEDS: PIPERACILLIN/TAZOBACTAM 3,375 MG in SODIUM CHLORIDE 0.9% 100 ML IV SCH (09:11)
[2017-03-08] MEDS: LINEZOLID INJ 600 MG in PREMIX 1 EACH IV SCH (09:12)
[2017-03-08 16:24] VITALS: BP 142/75
== END 2017-03-08 16:55 | disposition home or self-care (01) | DRG 207 ==
LOC: EDBD → EDUNIT# → N.ED 06:09 → SUATTDRO 07:35 → N.EDINP 07:35 → N.ICU 09:08 → N.2E 03-03 21:47
PROVIDERS: ADMIT Internal Medicine Infectious Disease; ATTEND Family Medicine